=== PATIENT | male | born 1970 | race Caucasian/White ===

== ENCOUNTER 2016-06-26 19:07 | Emergency (ER) | payer OTHER ==
[2016-06-26] MEDS ORDERED: CYCLOBENZAPRINE HCL 5 MG TABLET PO ONE (19:54)
[2016-06-26] MEDS ORDERED: oxyCODONE/ACETAMINOPHEN 5/325 TABLET PO ONE (19:54)
[2016-06-26] MEDS ORDERED: IBUPROFEN 400 MG TABLET PO ONE (19:56)
[2016-06-27 01:14] VITALS: BP 144/85
--- NOTE | 2016-06-27 01:44 | Diagnostic Imaging Report ---
EN WANG~ [facility] [address] [address] ~ ~ ~ ~ Report Submission Date: Jun 26, 2016 8:27:22 PM SATURATOR Patient ~ Study Name: CAROLYN ROBERTS ~ Date: Jun 26, 2016 8:08:31 PM SATURATOR ~ Modality Type: CR Gender: M ~ Description: SPINE : 68 ~ Institution: [facility] Physician: EN WANG ~ ~ ~ ~ Lumbar spine 3 views History: Low back pain after lifting injury Findings: The lumbar spine is unremarkable without fracture, disc space narrowing, spondylolysis, or spondylolisthesis. ~ Electronically signed on Jun 26, 2016 8:27:22 PM SATURATOR by: Reji THOMAS
--- NOTE | 2016-06-27 05:05 | ED Physician Documentation ---
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 Alexis felt his back tighten History: other (has injured his back before but nothing chronically) Onset: hours (1) Duration: continues in ED Recent Injury: No Context: lifting, turning Where: work Other Injuries: denies: neck, head, back Severity: moderate Quality: sharp Front/Back of Body, Lg (Color): 1 - pain Associated Symptoms: denies: fever, chills, sweating, constipation, incontinence , nausea, vomiting, problems urinating, difficulty walking, light-headedness, dizziness, numbness, weakness Worsened By:: other (movement forward/backward) Relieved By: remaining still Further Comments: no - ROS CONST: no problems CVS/RESP: none EYES/ENT: none MS/SKIN/LYMPH: none Neuro/Psych: none GI/: denies: abdominal pain, black stools - PAST HX Past History: other (low testosterone) Other History: hypertension, other (hyperlipidemia) Immunizations: referred to PCP Allergies/Adverse Reactions: Allergies Allergy/AdvReac Type Severity Reaction Status Date / Time No Known Drug Allergies Allergy Verified 07/15/15 18:55 Home Medications: Ambulatory Orders Medication Instructions Recorded Aspirin Ec 81 mg PO DAILY u2 01/10/13 Cholecalciferol [Vitamin D-3] 5,000 units PO D 06/26/16 Niacin [Niaspan] 1,000 mg PO D 06/26/16 Vitamin E [Vitamin E] 1,000 units PO D 06/26/16 - SOCIAL HX Smoking History: chew Alcohol Use: none Drug Use: none - FAMILY HX Family History: no significant history - VITAL SIGNS Vital Signs: Vital Signs Temp Pulse Resp BP Pulse Ox 97.7 F 81 14 144/85 97 06/26/16 19:07 06/26/16 21:05 06/26/16 21:05 06/26/16 21:05 06/26/16 21:05 - REVIEWED ASSESSMENTS Nursing Assessment Reviewed: Yes Vitals Reviewed: Yes Progress - Results/Orders Results/Orders: x-ray lumbar spine ordered - Progress Progress: pt. given 1 percocet 5/325 p.o., 1 flexeril 10 mg p.o. and 1 motrin 800 mg p.o. in er Critical Care Note - Critical Care Note Total Time (mins): 0 ED Results Lab/Radiology - Lab Results Lab Results: one ordered - Radiology Radiology Impressions: x-ray L-spine neg - Orders Orders: ED Orders Category Date Time Status LUMBAR SPINE XR 2 OR 3 VIEWS [L SPINE 2 OR 3 VIEWS] [ Exams 06/26/16 Completed RAD] Stat Cyclobenzaprine HCl [Flexeril] Med 06/26/16 19:54 Discontinued 10 mg PO NOW ONE Ibuprofen [Advil] Med 06/26/16 19:56 Discontinued 800 mg PO NOW ONE oxyCODONE HCL/ACETAMINOPHEN [Percocet 5-325 mg Tablet] Med 06/26/16 19:54 Discontinued 1 each PO NOW ONE Low Back Pain/Injury - Physical Exam General Appearance: alert, moderate distress EENT: eye inspection normal, ENT inspection normal, pharynx normal, no signs of dehydration, NICOLE, no nystagmus, TM's nml Neck: non-tender, painless ROM, trachea midline Resp/CVS: chest non-tender, breath sounds nml, heart sounds nml, no resp. distress, lungs clear, reg. rate & rhythm Abdomen: non-tender, no organomegaly, no pulsatile mass Back: vertebral point-tendernes (L2-L5), muscle spasm (paravertebral muscles lumbar spine) Straight Leg Raising: Positive Left, Positive Right Neuro/Psych: oriented x3, motor nml, sensation nml, bilat. doriflexion nml, reflexes nml, mood/affect nml Skin: warm/dry, normal color Extremities: non-tender, normal range of motion, no evidence of injury, no edema Discharge Clincal Impression: Lumbar strain Qualifiers: Encounter type: initial encounter Qualified Code(s): S39.012A - Strain of muscle, fascia and tendon of lower back, initial encounter Referrals: Primary Doctor,No [Primary Care Provider] - 2 Days Home Medications: Ambulatory Orders Aspirin Ec 81 mg PO DAILY u2 01/10/13 Cholecalciferol [Vitamin D-3] 5,000 units PO D 06/26/16 Niacin [Niaspan] 1,000 mg PO D 06/26/16 Vitamin E [Vitamin E] 1,000 units PO D 06/26/16 Comments: discharged home in stable and improved condition to care of with scripts for Parafon Forte DSC 500 mg #20 1 p.o. qid and Percocet 7.5/325 #10 1 p.o. qid prn pain, bith generic, no refill. Pt. to use otc ibuprofen 800 mg p.o. tid. Condition: Stable Disposition: 01 HOME, SELF-CARE Decision to Admit: NO Decision Time: 21:00
== END 2016-06-26 20:53 | disposition home or self-care (01) ==
LOC: ED 19:07
DX: S39.012A Strain of muscle, fascia and tendon of lower back, initial encounter (principal); X50.3XXA Overexertion from repetitive movements, initial encounter
CPT/HCPCS: 72100; A9270; 99283

== ENCOUNTER 2018-06-13 01:25 | Emergency (ER) | payer OTHER ==
[2018-06-13] MEDS ORDERED: CYCLOBENZAPRINE HCL 10 MG TABLET PO ONE (01:39)
[2018-06-13] MEDS ORDERED: CYCLOBENZAPRINE HCL 5 MG TABLET ONE (01:47)
[2018-06-13] MEDS ORDERED: fentaNYL CITRATE/PF 100 MCG/2 ML INJ. ONE (01:49)
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
[2018-06-13] MEDS: fentaNYL CITRATE/PF 100 MCG/2 ML INJ. IM PRN ×2 (01:57→03:02)
[2018-06-13 03:18] VITALS: BP 134/74
--- NOTE | 2018-06-13 06:30 | Diagnostic Imaging Report ---
NIK MADDOX [facility] [address] [facility].[address] [address] Report Submission Date: Jun 13, 2018 2:43:00 AM BUFFER NICKEL Patient Study Name: CAROLYN ROBERTS Date: Jun 13, 2018 1:52:40 AM BUFFER NICKEL Modality Type: DX Gender: M Description: T SPINE 3 VIEWS : 68 Institution: [facility] Physician: NIK MADDOX Thoracic spine, three views History: Pain. Findings: The vertebral body heights and alignments are normal. No significant intervertebral disc space narrowing. The posterior ribs are normal. Impression: 1. No osseous abnormality. Electronically signed on Jun 13, 2018 2:43:00 AM BUFFER NICKEL by: Henry THOMAS
--- NOTE | 2018-06-13 06:31 | Diagnostic Imaging Report ---
NIK MADDOX [facility] [address] [facility].[address] [address] Report Submission Date: Jun 13, 2018 2:35:20 AM SHIP FITTER Patient Study Name: CAROLYN ROBERTS Date: Jun 13, 2018 1:49:20 AM SHIP FITTER Modality Type: DX Gender: M Description: L SPINE 2 OR 3 VIEWS : 68 Institution: [facility] Physician: NIK MADDOX Lumbar spine, three views. History: Back pain. Findings: The vertebral body heights and alignments are normal. No significant intervertebral disc space narrowing. The facets are normal. Sacroiliac joints are unremarkable. Impression: 1. No osseous abnormality. Electronically signed on Jun 13, 2018 2:35:20 AM SHIP FITTER by: Henry THOMAS
--- NOTE | 2018-06-13 06:31 | Diagnostic Imaging Report ---
NIK MADDOX [facility] [address] [facility].[address] [address] Report Submission Date: Jun 13, 2018 2:37:27 AM BREAD DOUGH MIXER Patient Study Name: CAROLYN ROBERTS Date: Jun 13, 2018 1:51:24 AM BREAD DOUGH MIXER Modality Type: DX Gender: M Description: SHOULDER 2 OR MORE VIEWS : 68 Institution: [facility] Physician: NIK MADDOX Left shoulder, three views History: Shoulder pain after injury. Findings: The osseous structures are intact without acute fracture. The humeral head is well seated within the glenoid fossa. The acromioclavicular joint is normal. There is evidence of previous internal fixation of the clavicle. Impression: 1. No acute osseous abnormality. 2. Postsurgical changes in the clavicle. Electronically signed on Jun 13, 2018 2:37:27 AM BREAD DOUGH MIXER by: Henry THOMAS
== END 2018-06-13 03:06 | disposition home or self-care (01) ==
LOC: ED 01:25
DX: S39.012A Strain of muscle, fascia and tendon of lower back, initial encounter (principal); S29.012A Strain of muscle and tendon of back wall of thorax, initial encounter; X58.XXXA Exposure to other specified factors, initial encounter; Y93.89 Activity, other specified; Y92.818 Other transport vehicle as the place of occurrence of the external cause; Y99.0 Civilian activity done for income or pay
CPT/HCPCS: 72072; 72100; 73030; 96372; 99284; 99285; J3010